=== PATIENT | male | born 1940 | race Caucasian/White ===

== ENCOUNTER 2019-06-10 06:18 | Day surgery (SDC) | payer MEDICARE, BC ==
[~2019-06-10] VITALS: Ht 188 cm; Wt 99.8 kg
[~2019-06-10 06:18] MED LIST: BACLOFEN10 MG PO; BAYER CHEWABLE81 MG PO; GLUCOPHAGE500 MG PO; JARDIANCE25 MG PO; KEPPRA500 MG PO; KLONOPIN0.5 MG PO; METOPROLOL TART50 MG PO; RESTASIS 0.05%; TIMOPTIC 0.5 % O5 ML RIGHT EYE; XALATAN 0.0052.5 ML RIGHT EYE; ZOCOR40 MG PO
[2019-06-10 07:08] LABS: BASOPHILS 0.6 % (0-2); EOSINOPHILS 4.2 % (0-7); HEMATOCRIT 50.5 % (42.0-54.0); HEMOGLOBIN 17.2 g/dL (13.5-17.5); IMMATURE GRANULOCYTES 0.6 % (0-5); LYMPHOCYTES 34.5 % (15-50); MCH 32.2 pg (26.0-34.0); MCHC 34.1 g/dL (31.0-37.0); MCV 94.6 fL (80.0-100.0); MONOCYTES 18.8 % (2-11); NEUTROPHILS 41.3 % (40-80); PLATELET COUNT 146 10x3/uL (130-400); RBC 5.34 10x6/uL (4.20-6.10); RDW 12.7 % (11.5-14.5); WBC 3.4 10x3/uL (4.8-10.8)
[2019-06-10 07:15] LABS: CALC OSMOLALITY 275 mosm/kg (275-300); CALCIUM 8.5 mg/dL (8.5-10.1); CARBON DIOXIDE 24.9 mmol/L (21.0-32.0); CHLORIDE - SERUM 103 mmol/L (98-107); CREATININE - SERUM 0.9 mg/dL (0.6-1.3); GLUCOSE 138 mg/dL (74-106); POTASSIUM - SERUM 4.1 mmol/L (3.5-5.1); SODIUM 135 mmol/L (136-145); UREA NITROGEN 25 mg/dL (7-18); eGFR NON AFRICAN AMERICAN 86 mL/min (90-120)
[2019-06-10 07:48] VITALS: BP 132/76; Ht 188 cm; Wt 99.8 kg
--- NOTE | 2019-06-10 09:50 | HP ---
PATIENT: RAFI PRESLEY MEDICAL RECORD: [id number] ACCOUNT: [id number] LOCATION:[facility] : 38 ADMISSION DATE: 06/10/19 PCP: HAILEE GARG MD HISTORY AND PHYSICAL EXAMINATION HISTORY OF PRESENT ILLNESS: Rafi is 79 years old. He has been found to have a right opacified maxillary sinusitis, it is atypical, could represent a dental infection, fungal sinusitis or mass. He is being admitted for right middle meatal antrostomy. 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 SOCIAL HISTORY: He is a nonsmoker. CURRENT MEDICATIONS: Lisinopril, metoprolol, metformin, Keppra, clonazepam, baclofen, timolol, latanoprost. ALLERGIES: DEMEROL. PHYSICAL EXAMINATION: GENERAL: He is healthy-appearing. FACE: Normal, symmetric, no lesions. EYES: Left artificial eye. Right eye is normal. EARS: Canals and TMs are normal. NOSE: No masses, polyps, or drainage. On endoscopy, there is some granulation around the right middle meatus. No obvious ostia. No obvious mass. NECK: No masses, no adenopathy. CHEST: Clear. CARDIOVASCULAR: Regular rate and rhythm, no murmur. EXTREMITIES: Normal. IMPRESSION: Opacified right maxillary sinus. PLAN: Right middle meatal antrostomy, removal of contents, path and cultures, etc. TRANSINT:[id number] Voice Confirmation ID: [id number] DOCUMENT ID: [id number] RAINA SILVERMAN MD at 0950 CC: [id number] DICTATION DATE: 06/09/19 1030 GRAB HOOKER: 06/09/19 1114 [facility] [address] [place] [address]
--- NOTE | 2019-06-10 11:16 | NUR ---
1115-DISCHARGE CRITERIA MET. REMOVED IV WITH CATH INTACT,DISPOSED INTO SHARPS,COVERED SITE WITH BANDAID. REVIEWED POST OPERATIVE INSTRUCTIONS WITH PT AND . VERBALIZED UNDERSTANDING. ESCORTED OUT VIA W/C WITH AWAITING TO DRIVE.STABLE CONDITION
--- NOTE | 2019-06-21 11:38 | OP ---
PATIENT NAME: MARK PRESLEY MEDICAL RECORD: [id number] :36 LOCATION:[facility] ADMISSION DATE: SURGEON: BRAEDEN REYES MD DATE OF OPERATION: 06/10/2019 PREOPERATIVE DIAGNOSIS: Right chronic maxillary sinusitis. POSTOPERATIVE DIAGNOSIS: Right chronic maxillary sinusitis. PROCEDURE: Right middle meatal antrostomy and outfracture of the inferior turbinates. SURGEON: Braeden Reyes MD ANESTHESIA: General orotracheal. BLOOD LOSS: Less than 5 cc. SPECIMENS: Cultures and path from the right middle meatus and maxillary sinus. COMPLICATIONS: None. NASAL PACKING: None. DISPOSITION: Recovery, stable. DESCRIPTION OF PROCEDURE: He was brought to the operating room and placed in supine position, sedated and intubated by anesthesia. He had been decongested with Afrin preoperatively. Using a headlight, the nose was examined. Both inferior turbinates were injected, and the uncinate and middle turbinate on the right were injected with a total of 1 cc of 1% lidocaine with 1:100,000 epinephrine. Two Afrin pledgets were placed in each side of the nose. He was positioned, prepped and draped in the usual fashion for nasal surgery. All the Afrin pledgets were removed. The left side was examined first with the 0-degree scope. Inferior middle turbinate, middle meatus, superior meatus, and the nasopharynx were all normal. I used a Browning elevator and outfractured the inferior turbinate. The right side was then examined. Again, the inferior turbinate was normal, floor of the nose and septum were normal. He had some deflection of his septum at the caudal septum, but really did not cause him much problem. The middle turbinate was normal medially, but laterally there was granular tissue in the middle meatus filling the middle meatus originating from the uncinate, lateral nasal wall, and the turbinate itself and some purulence there. The nasal vault was normal. Nasopharynx, superior meatus, and superior turbinate were all normal. I outfractured the inferior turbinate with a Browning elevator. Then, with a straight biting forceps, removed this granular inflamed tissue from the middle meatus exposing the uncinate and the middle turbinate. All of that tissue was sent for path. I then used a ball-tip probe, fractured the uncinate anteriorly and removed the rest of that with upbiting and backbiting forceps. All of that was sent for pathology as well. This exposed the middle meatus. All the tissue around there was granular, was occluded. I used the upbiting forceps and removed the excess inflamed tissue inferiorly to see a nice opening there. Inserted a large curved olive tip suction. I then using a Luki trap evacuated purulence, relatively thin purulence, from that maxillary sinus into the Luki trap. Cultures were obtained from that. I then irrigated the sinus out with saline, looked at it. There was some polypoid OPERATIVE REPORT [id number] MARK PRESLEY tissue that was removed as well, but the mucosal surfaces looked just inflamed. There was no solid tissue or fungal elements in the sinus. I removed some of the ethmoid bulla with upbiting forceps, those sinuses were normal, just to make more room for that maxillary antrostomy to drain. I then irrigated that sinus repeatedly with 30 cc syringe with saline many times until it was completely clear and clean. Examined the sinus with 30 and 70-degree scope. Then used some mupirocin ointment on a long curved olive tip suction, put some in the maxillary sinus and the ethmoid cavity and middle meatus on the right side. There was minimal bleeding. The nasopharynx was suctioned. He was then awakened, extubated, and transported to recovery in good condition. No complications. TRANSINT:[id number] Voice Confirmation ID: [id number] DOCUMENT ID: [id number] BRAEDEN REYES MD at 1138 CC: [id number] DICTATION DATE: 06/10/19 0954 [facility]: 06/10/19 1043 [facility] 06/10/19 [facility] [address] [place] [address]
== END 2019-06-10 11:00 | disposition home or self-care (01) ==
LOC: D.OPS 06:18 → D.PAN 07:00 → D.OPS 07:00 → D.PAN 07:30 → D.OPS 08:15 → D.PAN 08:25 → D.OPS 08:30
PROVIDERS: Anesthesiology; ATTEND Otolaryngology
DX: J32.0 Chronic maxillary sinusitis (principal); E11.9 Type 2 diabetes mellitus without complications